=== PATIENT | female | born 1965 | race African-American/Black ===

== ENCOUNTER 2016-12-09 09:00 | Emergency (ER) | payer SELFPAY ==
[2016-12-09] MEDS ORDERED: ONDANSETRON PF 4 MG/2 ML VIAL. IV ONE (09:15)
[2016-12-09] MEDS ORDERED: fentaNYL PF VIAL 100 MCG/2 ML VIAL IV PRN (09:15)
[2016-12-09] MEDS ORDERED: IV NORMAL SALINE 1000ML BAG 1,000 ML IV ONE (09:15)
[2016-12-09 09:25] VITALS: BP 134/65
[2016-12-09 09:36] LABS: BASO # 0.1 x10^3/uL (0.0-0.2); BASO % 1 % (0-3); EOS % 2 % (0-3); HEMOGLOBIN 12.6 g/dL (12.0-15.5); LYMPH % 29 % (24-48); MEAN CORPUSCULAR HEMOGLOBIN 25 pg (25-35); MEAN CORPUSCULAR HGB CONC 32 g/dL (31-37); MEAN CORPUSCULAR VOLUME 78 fL (79-100); MONO % 6 % (0-9); NEUT % 63 % (31-73); PLATELET COUNT 272 x10^3/uL (140-400); RED BLOOD COUNT 4.98 x10^6/uL (3.50-5.40); RED CELL DISTRIBUTION WIDTH 15.3 % (11.5-14.5); WHITE BLOOD COUNT 6.8 x10^3/uL (4.0-11.0)
[2016-12-09 09:38] LABS: BILIRUBIN,URINE NEGATIVE (NEG); GLUCOSE,URINE NEGATIVE (NEG); NITRITE,URINE NEGATIVE (NEG); PH,URINE 6.5; PROTEIN,URINE NEGATIVE (NEG-TRACE)
[2016-12-09] MEDS ORDERED: CONTRAST GIVEN MC PRN (09:45)
[2016-12-09] MEDS ORDERED: IOHEXOL 300 MG/ML 75 ML VIAL IV ONE (09:45)
[2016-12-09 09:46] LABS: CREATININE 0.9 mg/dL (0.6-1.0); GFR 66.5; POTASSIUM 4.1 mmol/L (3.5-5.1)
[2016-12-09 09:51] LABS: ALBUMIN 3.5 g/dL (3.4-5.0); ALBUMIN/GLOBULIN RATIO 0.8 (1.0-1.7); TOTAL BILIRUBIN 0.4 mg/dL (0.2-1.0)
--- NOTE | 2016-12-09 09:55 | PHYS DOC ---
Past Medical History Past Medical History: Anxiety, Depression, Diverticulitis, Schizophrenia Past Surgical History: No Surgical History Alcohol Use: None Drug Use: Marijuana Adult General Chief Complaint Chief Complaint: ABDOMINAL PAIN HPI HPI Patient is a 51 year old female presents to the emergency department stating she is having abdominal pain on the right side of her abdomen as well as the mid abdominal area. She states that this started yesterday. She states that she' s been nauseated however has not vomited she does state that she's had diarrhea stools. She is unable to provide the amount of diarrhea stools and no blood noted. She denies any fever, chills she denies any urinary frequency urgency or pain with urination. Patient does state she has a history of diverticulitis. Review of Systems Review of Systems Constitutional: Denies fever or chills [] Eyes: Denies change in visual acuity, redness, or eye pain [] HENT: Denies nasal congestion or sore throat [] Respiratory: Denies cough or shortness of breath [] Cardiovascular: No additional information not addressed in HPI [] GI: abdominal pain, nausea, vomiting, denies bloody stools or diarrhea [] : Denies dysuria or hematuria [] Musculoskeletal: Denies back pain or joint pain [] Integument: Denies rash or skin lesions [] Neurologic: Denies headache, focal weakness or sensory changes [] Endocrine: Denies polyuria or polydipsia [] Current Medications Current Medications Current Medications Medications (Trade) Dose Ordered Sig/Luciano Start Time Stop Time Status Last Admin Dose Admin Fentanyl Citrate (Fentanyl 2ml Vial) 50 mcg PRN Q15MIN PRN 12/09/16 09:15 12/10/16 09:14 12/09/16 09:46 50 MCG Info (Do NOT chart on this entry -- for MONITORING) 1 each PRN DAILY PRN 12/09/16 09:45 12/11/16 09:44 Iohexol (Omnipaque 300 Mg/ml) 75 ml 1X ONCE 12/09/16 09:45 12/09/16 09:46 DC 12/09/16 10:05 75 ML Ondansetron HCl (Zofran) 4 mg 1X ONCE 12/09/16 09:15 12/09/16 09:32 DC 12/09/16 09:46 4 MG Sodium Chloride 1,000 ml @ 1,000 mls/hr 1X ONCE 12/09/16 09:15 12/09/16 10:14 DC 12/09/16 09:45 1,000 MLS/HR Allergies Allergies Allergies Coded Allergies Type Severity Reaction Last Updated Verified No Known Drug Allergies 12/09/16 No Physical Exam Physical Exam Constitutional: Well developed, well nourished, no acute distress, non-toxic appearance. [] HENT: Normocephalic, atraumatic, bilateral external ears normal, oropharynx moist, no oral exudates, nose normal. [] Eyes: PERRLA, EOMI, conjunctiva normal, no discharge. [] Neck: Normal range of motion, no tenderness, supple, no stridor. [] Cardiovascular:Heart rate regular rhythm, no murmur [] Lungs & Thorax: Bilateral breath sounds clear to auscultation [] Abdomen: Bowel sounds normal, soft, no tenderness, no masses, no pulsatile masses. Tenderness noted to the right side of abdominal area with no rebound tenderness no guarding noted. Skin: Warm, dry, no erythema, no rash. [] Back: No tenderness Extremities: No tenderness, no cyanosis, no clubbing, ROM intact, no edema. [] Neurologic: Alert and oriented X 3, normal motor function, normal sensory function, no focal deficits noted. [] Psychologic: Affect normal, judgement normal, mood normal. [] Current Patient Data Vital Signs Vital Signs Date Time Temp Pulse Resp B/P (MAP) Pulse Ox O2 Delivery O2 Flow Rate FiO2 12/09/16 09:46 18 99 Room Air 12/09/16 09:25 97.4 74 134/65 (88) 97.4 Lab Values Laboratory Tests Test 12/09/16 09:10 12/09/16 09:15 Urine Collection Type Unknown Urine Color Yellow Urine Clarity Clear Urine pH 6.5 Urine Specific [place] 1.020 Urine Protein Negative mg/dL (NEG-TRACE) Urine Glucose (UA) Negative mg/dL (NEG) Urine Ketones (Stick) Negative mg/dL (NEG) Urine Blood Negative (NEG) Urine Nitrite Negative (NEG) Urine Bilirubin Negative (NEG) Urine Urobilinogen Dipstick 1.0 mg/dL (0.2 mg/dL) Urine Leukocyte Esterase Small (NEG) Urine RBC 0 /HPF (0-2) Urine WBC 1-4 /HPF (0-4) Urine Squamous Epithelial Cells Many /LPF Urine Bacteria Few /HPF (0-FEW) White Blood Count 6.8 x10^3/uL (4.0-11.0) Red Blood Count 4.98 x10^6/uL (3.50-5.40) Hemoglobin 12.6 g/dL (12.0-15.5) Hematocrit 39.0 % (36.0-47.0) Mean Corpuscular Volume 78 fL (79-100) L Mean Corpuscular Hemoglobin 25 pg (25-35) Mean Corpuscular Hemoglobin Concent 32 g/dL (31-37) Red Cell Distribution Width 15.3 % (11.5-14.5) H Platelet Count 272 x10^3/uL (140-400) Neutrophils (%) (Auto) 63 % (31-73) Lymphocytes (%) (Auto) 29 % (24-48) Monocytes (%) (Auto) 6 % (0-9) Eosinophils (%) (Auto) 2 % (0-3) Basophils (%) (Auto) 1 % (0-3) Neutrophils # (Auto) 4.3 x10^3uL (1.8-7.7) Lymphocytes # (Auto) 2.0 x10^3/uL (1.0-4.8) Monocytes # (Auto) 0.4 x10^3/uL (0.0-1.1) Eosinophils # (Auto) 0.1 x10^3/uL (0.0-0.7) Basophils # (Auto) 0.1 x10^3/uL (0.0-0.2) POC Urine HCG, Qualitative Hcg negative (Negative) Sodium Level 139 mmol/L (136-145) Potassium Level 4.1 mmol/L (3.5-5.1) Chloride Level 104 mmol/L (98-107) Carbon Dioxide Level 25 mmol/L (21-32) Anion Gap 10 (6-14) Blood Urea Nitrogen 11 mg/dL (7-20) Creatinine 0.9 mg/dL (0.6-1.0) Estimated GFR (Cockcroft-Gault) 66.5 BUN/Creatinine Ratio 12 (6-20) Glucose Level 90 mg/dL (70-99) Calcium Level 9.0 mg/dL (8.5-10.1) Total Bilirubin 0.4 mg/dL (0.2-1.0) Aspartate Amino Transferase (AST) 18 U/L (15-37) Alanine Aminotransferase (ALT) 29 U/L (14-59) Alkaline Phosphatase 116 U/L (46-116) Total Protein 8.0 g/dL (6.4-8.2) Albumin 3.5 g/dL (3.4-5.0) Albumin/Globulin Ratio 0.8 (1.0-1.7) L Laboratory Tests 12/09/16 09:15 Laboratory Tests 12/09/16 09:15 EKG EKG [] Radiology/Procedures Radiology/Procedures [][facility] [address] [place] [address] IMAGING REPORT Signed PATIENT: GAGANDEEP DONAHUE ACCOUNT: [id number] : 1965 LOCATION: ER AGE: 51 SEX: F EXAM STATUS: REG ER ORD. PHYSICIAN: GABRIELLA ANDRE APRN REASON: abdominal pain, right side and mid abd. hx diverticulitis PROCEDURE: CT ABD PELV W/ IV CONTRST ONLY CT of the abdomen and pelvis with contrast, 12/09/2016: History: Right-sided pain Multidetector CT imaging was performed following an IV bolus injection of iodinated contrast material. No oral contrast material was administered for this exam. There is minimal atelectasis posteriorly in the lung bases. At least 3 small low-density lesions are visualized in the liver. The largest of these lies in a subcapsular location laterally in the right lobe and measures 12 x 8 mm. This does not appear to represent a simple cyst. The other 2 smaller lesions are too small to characterize. No bile duct dilatation is seen. The gallbladder is unremarkable. No pancreatic abnormality is seen. The spleen is of normal size. No renal or adrenal abnormality is detected. There is mild aortic calcific plaquing without evidence of aneurysm. No abdominal or pelvic adenopathy is seen. The uterus is enlarged and lobulated in contour. It contains multiple rounded masses several of which demonstrate decreased density internally. The appearance is that of uterine fibroids. The largest of these lies anterolateral in the left and measures approximately 7 cm. The bowel loops are not dilated. There are scattered colonic diverticula best seen in the descending and sigmoid colon. No paracolonic inflammatory process is evident. A portion of the appendix is visualized. Shows no evidence of enlargement or periappendiceal inflammation. No free air there is evident in the abdomen. There may be a trace amount of free fluid in the pelvis on the right. IMPRESSION: 1. Enlarged, fibroid uterus. 2. Mild colonic diverticulosis. 3. Several small nonspecific low-density lesions are noted in the liver. Nonemergent hepatic ultrasound or MR imaging may be useful for attempted characterization. 4. No acute abdominal or pelvic abnormality is detected. PQRS Compliance Statement: One or more of the following individualized dose reduction techniques were utilized for this examination: 1. Automated exposure control 2. Adjustment of the mA and/or kV according to patient size 3. Use of iterative reconstruction technique DICTATED and SIGNED BY: RAO COLLIER MD DATE: 12/09/16 1020 CC: GABRIELLA ANDRE APRN; NO PCP; NON,STAFF ~ Course & Med Decision Making Course & Med Decision Making Pertinent Labs and Imaging studies reviewed. (See chart for details) Patient had been provided with 1 L of normal saline, fentanyl and Zofran here in the emergency department which she tolerated well. Patient's pain is under control at the current time. CBC, CMP, urinalysis was negative. Patient did have a small amount of leukocyte Estrace noted however she was not complaining of any urinary frequency urgency or pain with urination. Patient CT scan identified diverticulosis. Patient will be discharged home with recommendations for clear liquid diet for the next 24 hours. Patient will also be recommended to drink plenty of fluids to stay hydrated. She'll be provided with hydrocodone in which she was instructed will cause drowsiness. She was recommended to follow -up with her primary care physician in regards to lesions noted on the liver. Patient does state she has a primary care physician and will follow-up. All questions and concerns have been answered at the patient's bedside. Patient will be discharged home in stable condition with signs and symptoms to return back to emergency department. [] Dragon Disclaimer Dragon Disclaimer This electronic medical record was generated, in whole or in part, using a voice recognition dictation system. Departure Departure Impression: Primary Impression: Diverticulosis Additional Impression: Abdominal pain Disposition: HOME, SELF-CARE Condition: STABLE Patient Instructions: Abdominal Pain (Nonspecific), Clear Liquid Diet, Easy-to- Read, Diverticulosis-Brief Additional Instructions: Activity as tolerated. Diet for the next 24 hours. Follow-up with your primary care physician in next 3-5 days. Return back to emergency prior signs symptoms of become worse. Hydrocodone will cause drowsiness do not take any be alert and oriented. Scripts Hydrocodone/Apap 5-325 (NORCO 5-325 TABLET) 1 Each Tablet 1 TAB PO PRN Q6HRS Y for PAIN, #10 TAB 0 Refills Prov: GABRIELLA ANDRE APRN 12/09/16 Problem Qualifiers Primary Impression: Diverticulosis Diverticulosis site: unspecified location Diverticulosis bleeding: diverticulosis without bleeding Qualified Codes: K57.90 - Diverticulosis of intestine, part unspecified, without perforation or abscess without bleeding Additional Impression: Abdominal pain Abdominal location: unspecified location Qualified Codes: R10.9 - Unspecified abdominal pain GABRIELLA ANDRE [facility] Dec 09, 2016 09:55
[2016-12-09 09:59] LABS: BACTERIA,URINE FEW /HPF (0-FEW); RBC,URINE 0 /HPF (0-2); SQUAMOUS EPITHELIAL CELL,UR MANY /LPF
--- NOTE | 2016-12-09 10:35 | RAD ---
CT of the abdomen and pelvis with contrast, 12/09/2016: History: Right-sided pain Multidetector CT imaging was performed following an IV bolus injection of iodinated contrast material. No oral contrast material was administered for this exam. There is minimal atelectasis posteriorly in the lung bases. At least 3 small low-density lesions are visualized in the liver. The largest of these lies in a subcapsular location laterally in the right lobe and measures 12 x 8 mm. This does not appear to represent a simple cyst. The other 2 smaller lesions are too small to characterize. No bile duct dilatation is seen. The gallbladder is unremarkable. No pancreatic abnormality is seen. The spleen is of normal size. No renal or adrenal abnormality is detected. There is mild aortic calcific plaquing without evidence of aneurysm. No abdominal or pelvic adenopathy is seen. The uterus is enlarged and lobulated in contour. It contains multiple rounded masses several of which demonstrate decreased density internally. The appearance is that of uterine fibroids. The largest of these lies anterolateral in the left and measures approximately 7 cm. The bowel loops are not dilated. There are scattered colonic diverticula best seen in the descending and sigmoid colon. No paracolonic inflammatory process is evident. A portion of the appendix is visualized. Shows no evidence of enlargement or periappendiceal inflammation. No free air there is evident in the abdomen. There may be a trace amount of free fluid in the pelvis on the right. IMPRESSION: 1. Enlarged, fibroid uterus. 2. Mild colonic diverticulosis. 3. Several small nonspecific low-density lesions are noted in the liver. Nonemergent hepatic ultrasound or MR imaging may be useful for attempted characterization. 4. No acute abdominal or pelvic abnormality is detected. PQRS Compliance Statement: One or more of the following individualized dose reduction techniques were utilized for this examination: 1. Automated exposure control 2. Adjustment of the mA and/or kV according to patient size 3. Use of iterative reconstruction technique
[2016-12-09] MEDS ORDERED: HYDR-971 PO (11:10)
== END 2016-12-09 11:21 | disposition home or self-care (01) ==
LOC: ER 09:00
DX: K57.90 Diverticulosis of intestine, part unspecified, without perforation or abscess without bleeding (principal); F41.9 Anxiety disorder, unspecified; F32.9 Major depressive disorder, single episode, unspecified; F20.9 Schizophrenia, unspecified
CPT/HCPCS: 36415; 74177; 80053; 81001; 81025; 85025; 87086; 96361; 96374; 96375; 99285; J2405; J3010; J7030; Q9967

== ENCOUNTER 2017-02-17 08:55 | Emergency (ER) | payer SELFPAY ==
[~2017-02-17] VITALS: Ht 157.5 cm; Wt 86.6 kg
[~2017-02-17 08:55] MED LIST: HYDR-971 PO
[2017-02-17] MEDS ORDERED: fentaNYL PF VIAL 100 MCG/2 ML VIAL IV ONE (09:15)
[2017-02-17] MEDS ORDERED: IV NORMAL SALINE 1000ML BAG 1,000 ML IV ONE (09:15)
[2017-02-17] MEDS ORDERED: ONDANSETRON PF 4 MG/2 ML VIAL. IV ONE (09:15)
--- NOTE | 2017-02-17 09:39 | PHYS DOC ---
Past Medical History Past Medical History: Anxiety, Depression, Diverticulitis, Schizophrenia, Other Additional Past Medical Histor: UNKNOWN AUTOIMMUNE DISEASE Past Surgical History: No Surgical History Alcohol Use: None Drug Use: Marijuana Adult General Chief Complaint Chief Complaint: ABDOMINAL PAIN HPI HPI Patient is a 51 year old female presenting to the emergency department via EMS for evaluation of abdominal pain nausea vomiting and diarrhea. Patient says that this all started suddenly at 4:00 this morning and she has had multiple episodes of nonbloody nonbilious emesis and multiple episodes of watery diarrhea. Her abdominal pain seems to be diffuse though she says her lower abdomen is more painful. She says that she has had no abdominal surgeries but she has had diverticulitis before in the past and this feels similar to her diverticulitis. She denies fevers chills dysuria hematuria or abnormal vaginal bleeding or vaginal discharge. She is uncomfortable appearing but nontoxic in appearance. Review of Systems Review of Systems Constitutional: Denies fever or chills [] Eyes: Denies change in visual acuity, redness, or eye pain [] HENT: Denies nasal congestion or sore throat [] Respiratory: Denies cough or shortness of breath [] Cardiovascular: No additional information not addressed in HPI [] GI: + abdominal pain, nausea, vomiting, diarrhea [] : Denies dysuria or hematuria [] Musculoskeletal: Denies back pain or joint pain [] Integument: Denies rash or skin lesions [] Neurologic: Denies headache, focal weakness or sensory changes [] All other systems were reviewed and found to be within normal limits, except as documented in this note. Current Medications Current Medications Current Medications Medications (Trade) Dose Ordered Sig/Luciano Start Time Stop Time Status Last Admin Dose Admin Fentanyl Citrate (Fentanyl 2ml Vial) 100 mcg 1X ONCE 02/17/17 09:15 02/17/17 09:16 DC 02/17/17 09:29 100 MCG Info (Do NOT chart on this entry -- for MONITORING) 1 each PRN DAILY PRN 02/17/17 09:45 02/19/17 09:44 Iohexol (Omnipaque 300 Mg/ml) 75 ml 1X ONCE 02/17/17 09:45 02/17/17 09:46 DC 02/17/17 09:57 75 ML Ondansetron HCl (Zofran) 4 mg 1X ONCE 02/17/17 09:15 02/17/17 09:16 DC 02/17/17 09:26 4 MG Sodium Chloride 1,000 ml @ 1,000 mls/hr 1X ONCE 02/17/17 09:15 02/17/17 10:14 DC 02/17/17 09:24 1,000 MLS/HR Allergies Allergies Allergies Coded Allergies Type Severity Reaction Last Updated Verified No Known Drug Allergies 12/09/16 No Physical Exam Physical Exam Constitutional: Well developed, well nourished, no acute distress, non-toxic appearance. [] HENT: Normocephalic, atraumatic, bilateral external ears normal, oropharynx moist, no oral exudates, nose normal. [] Eyes: PERRLA, EOMI, conjunctiva normal, no discharge. [] Neck: Normal range of motion, no tenderness, supple, no stridor. [] Cardiovascular:Heart rate regular rhythm, no murmur [] Lungs & Thorax: Bilateral breath sounds clear to auscultation [] Abdomen: Bowel sounds normal, soft, diffuse lower abdominal tenderness, voluntary guarding but no rebound, no masses, no pulsatile masses. [] Skin: Warm, dry, no erythema, no rash. [] Back: No tenderness, no CVA tenderness. [] Extremities: No tenderness, no cyanosis, no clubbing, ROM intact, no edema. [] Neurologic: Alert and oriented X 3, normal motor function, normal sensory function, no focal deficits noted. [] Current Patient Data Vital Signs Vital Signs Date Time Temp Pulse Resp B/P (MAP) Pulse Ox O2 Delivery O2 Flow Rate FiO2 02/17/17 09:29 18 02/17/17 08:55 97.3 62 102/58 (73) 100 Room Air 97.3 Lab Values Laboratory Tests Test 02/17/17 09:22 02/17/17 10:19 White Blood Count 7.9 x10^3/uL (4.0-11.0) Red Blood Count 4.88 x10^6/uL (3.50-5.40) Hemoglobin 12.4 g/dL (12.0-15.5) Hematocrit 38.5 % (36.0-47.0) Mean Corpuscular Volume 79 fL (79-100) Mean Corpuscular Hemoglobin 25 pg (25-35) Mean Corpuscular Hemoglobin Concent 32 g/dL (31-37) Red Cell Distribution Width 15.8 % (11.5-14.5) H Platelet Count 266 x10^3/uL (140-400) Neutrophils (%) (Auto) 80 % (31-73) H Lymphocytes (%) (Auto) 15 % (24-48) L Monocytes (%) (Auto) 3 % (0-9) Eosinophils (%) (Auto) 1 % (0-3) Basophils (%) (Auto) 1 % (0-3) Neutrophils # (Auto) 6.4 x10^3uL (1.8-7.7) Lymphocytes # (Auto) 1.2 x10^3/uL (1.0-4.8) Monocytes # (Auto) 0.3 x10^3/uL (0.0-1.1) Eosinophils # (Auto) 0.1 x10^3/uL (0.0-0.7) Basophils # (Auto) 0.0 x10^3/uL (0.0-0.2) Sodium Level 139 mmol/L (136-145) Potassium Level 4.3 mmol/L (3.5-5.1) Chloride Level 104 mmol/L (98-107) Carbon Dioxide Level 25 mmol/L (21-32) Anion Gap 10 (6-14) Blood Urea Nitrogen 11 mg/dL (7-20) Creatinine 0.7 mg/dL (0.6-1.0) Estimated GFR (Cockcroft-Gault) 107.6 BUN/Creatinine Ratio 16 (6-20) Glucose Level 103 mg/dL (70-99) H Calcium Level 9.0 mg/dL (8.5-10.1) Magnesium Level 1.8 mg/dL (1.8-2.4) Total Bilirubin 0.5 mg/dL (0.2-1.0) Aspartate Amino Transferase (AST) 14 U/L (15-37) L Alanine Aminotransferase (ALT) 15 U/L (14-59) Alkaline Phosphatase 95 U/L (46-116) Troponin I Quantitative < 0.017 ng/mL (0.000-0.055) Total Protein 7.3 g/dL (6.4-8.2) Albumin 3.7 g/dL (3.4-5.0) Albumin/Globulin Ratio 1.0 (1.0-1.7) Lipase 204 U/L (73-393) Ethyl Alcohol Level < 10 mg/dL (0-10) Urine Collection Type Unknown Urine Color Yellow Urine Clarity Clear Urine pH 5.5 Urine Specific [place] >=1.030 Urine Protein Negative mg/dL (NEG-TRACE) Urine Glucose (UA) Negative mg/dL (NEG) Urine Ketones (Stick) Negative mg/dL (NEG) Urine Blood Negative (NEG) Urine Nitrite Negative (NEG) Urine Bilirubin Negative (NEG) Urine Urobilinogen Dipstick 0.2 mg/dL (0.2 mg/dL) Urine Leukocyte Esterase Negative (NEG) Urine RBC Occ /HPF (0-2) Urine WBC Occ /HPF (0-4) Urine Squamous Epithelial Cells Few /LPF Urine Bacteria Few /HPF (0-FEW) Urine Mucus Marked /LPF Urine Opiates Screen Neg (NEG) Urine Methadone Screen Neg (NEG) Urine Barbiturates Neg (NEG) Urine Phencyclidine Screen Neg (NEG) Urine Amphetamine/Methamphetamine Neg (NEG) Urine Benzodiazepines Screen Neg (NEG) Urine Cocaine Screen Neg (NEG) Urine Cannabinoids Screen Pos (NEG) Urine Ethyl Alcohol Neg (NEG) Laboratory Tests 02/17/17 09:22 Laboratory Tests 02/17/17 09:22 EKG EKG [] Radiology/Procedures Radiology/Procedures CT abdomen and pelvis with contrast 02/17/2017 Clinical indication: Diffuse lower abdominal pain. Comparison: CT abdomen and pelvis without and 2016 Technique: Multiple CT images of the abdomen were obtained following the intravenous administration of 75 mL Omnipaque 300. PQRS Compliance Statement: One or more of the following individualized dose reduction techniques were utilized for this examination: 1. Automated exposure control 2. Adjustment of the mA and/or kV according to patient size 3. Use of iterative reconstruction technique Findings: There is mild cardiomegaly. Visualized lung bases are clear. The liver is normal in size and morphology. There are few stable right hepatic hypodensities which are too small to definitely characterize measuring 6 mm in hepatic segment 7 series 2/image 15 and 0.6 cm in hepatic segment 6 series 2/image 32. Gallbladder normal in size and configuration. Spleen, adrenal glands, pancreas and kidneys are unremarkable. Abdominal aorta is normal in caliber with mild calcified atheromatous disease. Major portal, splenic and visualized. Mesenteric veins are patent. Examination of the bowel loops somewhat limited due to motion. No bowel obstruction. Mild distal colonic diverticula without evidence of diverticulitis. No abdominal free fluid. No retroperitoneal or mesenteric lymphadenopathy. There is an enlarged uterus with multiple hypoechoic probable fibroids with a international representative fibroid at the fundus measuring up to 6.9 cm. No iliac or inguinal lymphadenopathy. Urinary bladder is unremarkable. No pelvic free fluid. There are no destructive osseous lesions. Impression: 1. No acute abdominal or pelvic process. 2. Enlarged fibroid uterus. 3. A few hepatic hypodensities which are too small to definitively characterize. Nonemergent MRI abdomen with contrast is recommended for further characterization. DICTATED and SIGNED BY: ALLISON DUKES MD DATE: 02/17/17 1042 Course & Med Decision Making Course & Med Decision Making Patient with possible gastroenteritis symptoms however she is quite painful on palpation in her lower abdomen so she will get labs CT fluids and Zofran and fentanyl and be reassessed. Patient's labs urinalysis and CT are negative for an acute process. She does have a fairly large uterine fibroid and she does say that she has large amount of bleeding and pain on her menstrual cycle but she is not on her cycle currently. She will be given referral to [facility] for further management of this fibroid. Patient is feeling much better and she has a repeat benign abdominal exam with normal vital signs and is requesting to go home. She is able to tolerate fluids by mouth with no difficulty so she'll be discharged in stable condition and told to rest her GI tract drink plenty of fluids and avoid solids for now and come back to the ED with worsening pain fevers vomiting or other general concerns. Otherwise follow with PCP in 2 days. Patient aware and agreeable with plan for discharge and verbalized understanding of the above instructions. Dragon Disclaimer Dragon Disclaimer This electronic medical record was generated, in whole or in part, using a voice recognition dictation system. Departure Departure Impression: Primary Impression: Abdominal pain Additional Impressions: Nausea & vomiting Diarrhea Cannabinosis Disposition: HOME, SELF-CARE Condition: STABLE Referrals: NO PCP (PCP) KIARA MEMBRENO MD Patient Instructions: Viral Gastroenteritis Additional Instructions: DRINK PLENTY OF FLUIDS AND AVOID SOLIDS. FOLLOW WITH YOUR PCP IN 2 DAYS TO ENSURE IMPROVEMENT AND COME BACK TO THE ED SOONER WITH WORSENING PAIN, FEVERS, VOMITING, OR OTHER GENERAL CONCERNS. THANK YOU! Scripts Ondansetron (ZOFRAN ODT) 4 Mg Tab.rapdis 4 MG PO BID Y for NAUSEA/VOMITING, #10 TAB Prov: DANNY MAR DO 02/17/17 Hydrocodone/Apap 5-325 (NORCO 5-325 TABLET) 1 Each Tablet 1 TAB PO PRN Q6HRS Y for PAIN, #6 TAB 0 Refills Prov: DANNY MAR DO 02/17/17 Problem Qualifiers Primary Impression: Abdominal pain Abdominal location: generalized Qualified Codes: R10.84 - Generalized abdominal pain DANNY MAR DO Feb 17, 2017 09:39
[2017-02-17 09:41] LABS: BASO % 1 % (0-3); EOS % 1 % (0-3); HEMATOCRIT 38.5 % (36.0-47.0); HEMOGLOBIN 12.4 g/dL (12.0-15.5); LYMPH # 1.2 x10^3/uL (1.0-4.8); LYMPH % 15 % (24-48); MEAN CORPUSCULAR HEMOGLOBIN 25 pg (25-35); MEAN CORPUSCULAR HGB CONC 32 g/dL (31-37); MEAN CORPUSCULAR VOLUME 79 fL (79-100); MONO % 3 % (0-9); NEUT % 80 % (31-73); PLATELET COUNT 266 x10^3/uL (140-400); RED BLOOD COUNT 4.88 x10^6/uL (3.50-5.40); RED CELL DISTRIBUTION WIDTH 15.8 % (11.5-14.5); WHITE BLOOD COUNT 7.9 x10^3/uL (4.0-11.0)
[2017-02-17] MEDS ORDERED: IOHEXOL 300 MG/ML 100ML VIAL. IV ONE (09:45)
[2017-02-17] MEDS ORDERED: CONTRAST GIVEN MC PRN (09:45)
[2017-02-17 09:48] LABS: CREATININE 0.7 mg/dL (0.6-1.0); GFR 107.6; POTASSIUM 4.3 mmol/L (3.5-5.1)
[2017-02-17 09:55] LABS: ALBUMIN 3.7 g/dL (3.4-5.0); MAGNESIUM 1.8 mg/dL (1.8-2.4); TOTAL BILIRUBIN 0.5 mg/dL (0.2-1.0); TOTAL PROTEIN 7.3 g/dL (6.4-8.2)
[2017-02-17 10:31] LABS: BILIRUBIN,URINE NEGATIVE (NEG); GLUCOSE,URINE NEGATIVE (NEG); NITRITE,URINE NEGATIVE (NEG); PH,URINE 5.5; PROTEIN,URINE NEGATIVE (NEG-TRACE); UROBILINOGEN,URINE 0.2 mg/dL (0.2 mg/dL)
[2017-02-17 10:39] LABS: BARBITURATES NEG (NEG); BENZODIAZEPINES NEG (NEG); CANNABINOIDS POS (NEG); COCAINE NEG (NEG); METHADONE NEG (NEG); OPIATES NEG (NEG); PHENCYCLIDINE NEG (NEG)
[2017-02-17 10:42] LABS: BACTERIA,URINE FEW /HPF (0-FEW); RBC,URINE OCC /HPF (0-2); SQUAMOUS EPITHELIAL CELL,UR FEW /LPF; WBC,URINE OCC /HPF (0-4)
--- NOTE | 2017-02-17 10:52 | RAD ---
CT abdomen and pelvis with contrast 02/17/2017 Clinical indication: Diffuse lower abdominal pain. Comparison: CT abdomen and pelvis and 2016 Technique: Multiple CT images of the abdomen were obtained following the intravenous administration of 75 mL Omnipaque 300. PQRS Compliance Statement: One or more of the following individualized dose reduction techniques were utilized for this examination: 1. Automated exposure control 2. Adjustment of the mA and/or kV according to patient size 3. Use of iterative reconstruction technique Findings: There is mild cardiomegaly. Visualized lung bases are clear. The liver is normal in size and morphology. There are few stable right hepatic hypodensities which are too small to definitely characterize measuring 6 mm in hepatic segment 7 series 2/image 15 and 0.6 cm in hepatic segment 6 series 2/image 32. Gallbladder normal in size and configuration. Spleen, adrenal glands, pancreas and kidneys are unremarkable. Abdominal aorta is normal in caliber with mild calcified atheromatous disease. Major portal, splenic and visualized. Mesenteric veins are patent. Examination of the bowel loops somewhat limited due to motion. No bowel obstruction. Mild distal colonic diverticula without evidence of diverticulitis. No abdominal free fluid. No retroperitoneal or mesenteric lymphadenopathy. There is an enlarged uterus with multiple hypoechoic probable fibroids with a loss prevention representative fibroid at the fundus measuring up to 6.9 cm. No iliac or inguinal lymphadenopathy. Urinary bladder is unremarkable. No pelvic free fluid. There are no destructive osseous lesions. Impression: 1. No acute abdominal or pelvic process. 2. Enlarged fibroid uterus. 3. A few hepatic hypodensities which are too small to definitively characterize. Nonemergent MRI abdomen with contrast is recommended for further characterization.
[2017-02-17] MEDS ORDERED: ONDA4TAB10 PO (11:12)
[2017-02-17] MEDS ORDERED: HYDR-971 PO (11:12)
[2017-02-17 11:13] VITALS: BP 109/65
== END 2017-02-17 11:17 | disposition home or self-care (01) ==
LOC: ER 09:21
DX: R10.30 Lower abdominal pain, unspecified (principal); R11.2 Nausea with vomiting, unspecified; R19.7 Diarrhea, unspecified; J66.2 Cannabinosis; F41.9 Anxiety disorder, unspecified; F32.9 Major depressive disorder, single episode, unspecified; F20.9 Schizophrenia, unspecified; F12.10 Cannabis abuse, uncomplicated
CPT/HCPCS: 36415; 74177; 80053; 80307; 81001; 83690; 83735; 84484; 85025; 96361; 96374; 96375; 99285; G0480; J2405; J3010; J7030; Q9967; G0479